=== PATIENT | female | born 1955 | race Caucasian/White ===

== ENCOUNTER → 2022-04-04 01:18 | Outpatient (CLI) | payer MEDICARE, SELFPAY ==
--- NOTE | 2022-04-04 | DI.CT_ITS ---
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 COMPARISON: CT CT CHEST WO from 08/28/2021 FINDINGS: Tracheobronchial tree: No bronchiectasis or mucous plugging. Mediastinum and [place]: No dominant adenopathy or fluid collection. Pulmonary parenchyma: Underlying emphysematous changes. Scarring bilateral lung apices. Suture mate rial left upper lobe. Stable area of presumed scarring in the inferior right lower lobe. Pleura: No effusion or pneumothorax. Heart: The heart is not dilated. Mild coronary artery calcifications are seen. Aorta: Thoracic aorta non-dilated. Atherosclerotic changes. Upper abdomen: Unremarkable. Lymph nodes: Within normal limits. Bones: Old right rib fractures. Minimal degenerative changes in the thoracic spine. No compressi on fractures.. Soft tissues: Unremarkable. IMPRESSION: Stable appearance of the chest. Stable presumed area of nodular scarring in the left lower lobe. No new abnormalities. RADIATION DOSE DELIVERED: 429.49mGy.cm Total DLP DATA REPOSITORY: All CT scans at this facility are submitted to the National Radiology Data Registry (NRDR) Dose Index Registry (DIR) with the [employer] ([employer]). RADIATION OPTIMIZATION: All CT scans at this facility use at least one of these dose optimization te chniques: automated exposure control; mA and/or kV adjustment per patient size (includes targeted exa ms where dose is matched to clinical indication); or iterative reconstruction.
== END ==
PROVIDERS: PCP Internal Medicine; Visit Provider Nurse Practitioner
DX: C34.31 Malignant neoplasm of lower lobe, right bronchus or lung (principal)
CPT/HCPCS: 71250